=== PATIENT | male | born 1975 | race Two or more races ===

== ENCOUNTER 2024-07-20 18:14 | Emergency (ER) | payer OTHER, SELFPAY ==
[2024-07-20 18:25] VITALS: BP 149/101
[2024-07-20 18:48] LABS: % Basophils 0.2 % (0-2); % Eosinophils 1.5 % (0-6); % Immature Granulocytes 0.2 % (0-0.5); % Lymphocytes 36.5 % (20.5-51.1); % Monocytes 6.9 % (1.7-9.3); % Neutrophils 54.7 % (42.2-75.2); Absolute Eosinophils 0.1 10^3/uL (0-0.7); Absolute Lymphocytes 2.2 10^3/uL (1.2-3.4); Absolute Monocytes 0.4 10^3/uL (0.1-0.6); Absolute Neutrophils 3.4 10^3/uL (1.4-6.5); Hematocrit 42.2 % (39.0-52.0); Hemoglobin 14.1 g/dL (13.0-18.0); Mean Corp Hgb Conc. 33.4 g/dL (33.0-37.0); Mean Corpuscular Hgb 28.8 pg (27.0-31.0); Mean Corpuscular Volume 86.1 fL (80.0-94.0); Mean Platelet Volume 9.1 fL (7.4-10.4); Nucleated Red Blood Cells % 0 % (-); Platelet Count 244 10^3/uL (130-400); White Blood Cell Count 6.1 10^3/uL (4.8-10.8)
[2024-07-20 19:13] LABS: Troponin I < 0.012 ng/ml
[2024-07-20 19:15] LABS: ALT (SGPT) 66 U/L (0-50); AST (SGOT) 32 U/L (17-59); Albumin 5.4 g/dl (3.5-5.0); Alkaline Phosphatase 56 U/L (38-126); Blood Urea Nitrogen 13 mg/dl (9-20); Calcium 9.3 mg/dl (8.4-10.2); Carbon Dioxide 27 mmol/L (22-30); Glucose 103 mg/dl (70-99); Total Bilirubin 0.4 mg/dl (0.2-1.3); Total Protein 8.5 g/dl (6.3-8.2); eGFR > 60.00
[2024-07-20 19:25] LABS: Chloride 101 mmol/L (98-107); Potassium 4.1 mmol/L (3.5-5.1); Sodium 138 mmol/L (135-145)
--- NOTE | 2024-07-20 22:36 | ED.GENMED ---
History of Present Illness
<Hieu Pemberton MD, Resident - Last Filed: 07/21/24 02:15>
General
Chief Complaint: Dizziness
Source: patient
Time Seen by Provider: 07/20/24 22:36
Nursing documentation reviewed up to this point in time: agreed with
Travel History
Have you traveled to any high risk areas for coronavirus over the past 14 days?: No
Have you had any contact with someone who has COVID-19?: No
Do you have any symptoms of coronavirus? Fever > 100 degrees, chills, cough, shortness of breath, sore throat, loss of taste or smell, muscle aches, or headache?: No
History of Present Illness
History of Present Illness:
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 Patient reports that he has been checking his blood pressure at home and
reports BP between 140-150 systolic which has recently come up to about 180 systolic recently. He does not see any regular PCP, and does not take any medications. He denies any chest pain, shortness of breath, vision changes, cough, palpitation,
fever, chills, abdominal pain, urinary symptoms.
Past History
<Hieu Pemberton MD, Resident - Last Filed: 07/21/24 02:15>
Past History
ED Past Medical History: None
Social History
Tobacco: Non-smoker
Alcohol: None
Drug: None
Personal: Single
Living: alone
Employment: Employed
Family History
Family History: Hypertension (Mother)
Review of Systems
<Hieu Pemberton MD, Resident - Last Filed: 07/21/24 02:15>
Review of Systems
All Other Systems: ROS reviewed and negative except as documented in HPI and ROS
Phy Exam
<Hieu Pemberton MD, Resident - Last Filed: 07/21/24 02:15>
Physical Exam
Physical Exam:
GENERAL: Alert and oriented x 3, NAD. Afebrile
HEAD: NC/AT
OROPHARYNX: no exudate or ulcers.
EYE: pupils equal and reactive extraocular muscles
NECK: Supple, no significant adenopathy.
CARDIAC: Regular rate and rhythm without any obvious murmurs.
LUNGS: Normal breath sounds,normal-no rhonchi. Not bronchospastic.
ABDOMEN: Soft, NT, ND, no peritoneal signs.
NEUROLOGICAL: Alert and oriented x 3. No focal neurological deficit.
SKIN: Warm and dry, no rash or lesion, no discoloration, skin intact.
MUSCULOSKELETAL: Full range of motion of extremities.
LYMPHATIC:No lymph nodes on his neck or supraclavicular area.
PSYCH: Normal and appropriate interaction.
Course
<Hieu Pemberton MD, Resident - Last Filed: 07/21/24 02:15>
Orders/Labs/Results
Orders:
Orders
07/20/24 18:31
Electrocardiogram (*1) Urgent
Reason for Study: Vertigo / Dizzy
EKG- Treatment ONCE
07/20/24 18:42
CMP [Comprehensive Metabolic Panel] Urgent
Complete Blood Count/With Diff Urgent
Troponin I Urgent
07/20/24 23:07
Orthostatic VS- Treatment ONCE
07/20/24 23:31
CR Chest - 2 Views Urgent
Comment:
Reason For Exam: Dizziness, LVH on EKG
07/20/24 23:42
Lisinopril [Zestril] 10 mg PO NOW STA
07/21/24 00:01
CT Head W/o Iv Contrast Urgent
Reason For Exam: Dizziness
Abnormal Lab Results
07/20/24
18:42
Glucose 103 H mg/dl
(70-99)
ALT 66 H U/L
(0-50)
Total Protein 8.5 H g/dl
(6.3-8.2)
Albumin 5.4 H g/dl
(3.5-5.0)
07/20/24 18:42
07/20/24 18:42
Vital Signs
Initial and Last Documented VS:
Initial Vital Signs
Temp Pulse Resp BP Pulse Ox
98.4 F 74 16 149/101 100
07/20/24 18:25 07/20/24 18:25 07/20/24 18:25 07/20/24 18:25 07/20/24 18:25
Last Documented Vital Signs
Temp Pulse Resp BP Pulse Ox
97.4 F 54 14 142/82 99
07/20/24 23:09 07/21/24 01:08 07/20/24 23:08 07/21/24 01:08 07/21/24 01:08
<Alesha Weldon, DO - Last Filed: 07/21/24 01:57>
Orders/Labs/Results
Orders:
Orders
07/20/24 18:31
Electrocardiogram (*1) Urgent
Reason for Study: Vertigo / Dizzy
EKG- Treatment ONCE
07/20/24 18:42
CMP [Comprehensive Metabolic Panel] Urgent
Complete Blood Count/With Diff Urgent
Troponin I Urgent
07/20/24 23:07
Orthostatic VS- Treatment ONCE
07/20/24 23:31
CR Chest - 2 Views Urgent
Comment:
Reason For Exam: Dizziness, LVH on EKG
07/20/24 23:42
Lisinopril [Zestril] 10 mg PO NOW STA
07/21/24 00:01
CT Head W/o Iv Contrast Urgent
Reason For Exam: Dizziness
Abnormal Lab Results
07/20/24
18:42
Glucose 103 H mg/dl
(70-99)
ALT 66 H U/L
(0-50)
Total Protein 8.5 H g/dl
(6.3-8.2)
Albumin 5.4 H g/dl
(3.5-5.0)
07/20/24 18:42
07/20/24 18:42
Vital Signs
Initial and Last Documented VS:
Initial Vital Signs
Temp Pulse Resp BP Pulse Ox
98.4 F 74 16 149/101 100
07/20/24 18:25 07/20/24 18:25 07/20/24 18:25 07/20/24 18:25 07/20/24 18:25
Last Documented Vital Signs
Temp Pulse Resp BP Pulse Ox
97.4 F 54 14 142/82 99
07/20/24 23:09 07/21/24 01:08 07/20/24 23:08 07/21/24 01:08 07/21/24 01:08
<Hieu Pemberton MD, Resident - Last Filed: 07/21/24 02:15>
MDM/Problems Addressed
MDM/Problems Addressed:
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 ECG in the ED was significant for LVH. Differential diagnosis include,
Vasovagal syncope, posterior circulation stroke, poorly controlled hypertension, hyperlipidemia, arrhythmia, orthostatic hypotension, stress, anxiety.
Given his symptoms, we will get a noncontrast CT of head, check chest x-ray to evaluate for LVH and monitor for now. He ultimately needs to follow-up with the primary care physician for outpatient blood pressure optimization. Will provide
information for [facility], and family medicine residency clinic.
Chronic conditions affecting care: HTN
<Hieu Pemberton MD, Resident - Last Filed: 07/21/24 02:15>
*EKG
Interpreted by ED Provider?: Yes
EKG Intrepretation Date: 07/20/24
EKG Intrepretation Time: 18:31
Interpretation: normal
Comparison EKG: no comparison EKG present
Heart Rate: 67
Rate: normal
Rhythm: sinus
[place]: normal axis
Interval: normal interval
QRS Pattern: left vent hypertrophy
Ischemia: no ischemia
*Critical Care Note
Total Time (30-74mins, 75-104mins- exclusive of procedures): Not Applicable
<Hieu Pemberton MD, Resident - Last Filed: 07/21/24 02:15>
Update Note
Update Note:
Patient reports feeling better. Blood pressure improved. His chest x-ray and head CT were without any abnormalities. Patient is medically stable for discharge. Have instructed patient to follow-up with a primary care physician for blood pressure
optimization and other chronic problems.
ED Attending Note
<Hieu Pemberton MD, Resident - Last Filed: 07/21/24 02:15>
-
Portions of this chart may have been created with voice recognition software.� Occasional wrong word or��sound alike� substitutions may have occurred due to the inherent limitations of voice recognition software.
<Alesha Weldon, DO - Last Filed: 07/21/24 01:57>
ED Attending Note
Patient seen and examined by attending physician: Yes
I performed a history and physical exam of patient and discussed management with resident, I reviewed resident's note and agree with documented findings and plan of care.: Yes
ED Attending Note:
This is a 48-year-old [place] gentleman who has relocated to the [place] 6 months ago.
He reports no past medical history and takes no medicines on a daily basis but has been monitoring his blood pressure frequently over the past several months and notes that his blood pressure has been elevated anywhere from 130s to 160s and
occasionally elevated at 180. He does admit that these higher blood pressure readings tend to occur when he checks his blood pressure multiple times in 1 sitting.
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 He denies a sense of dizziness nor spinning, no palpitations no chest pain, no coughing or shortness of breath, no headache initially.
He did not pass out and lightheadedness resolved within several minutes but sometime after that he then developed mild generalized headache. He did check his blood pressure and was concerned that it was elevated, 170s systolic.
Currently feeling improved, continues with mild headache but no further lightheadedness, no dizziness, no other associated symptoms.
No history of similar episodes in the past.
48-year-old gentleman appears his stated age, awake and alert, pleasant, appears in no acute distress.
Neck is supple, nontender, no JVD, no bruit.
Heart is regular rate and rhythm.
Neuro: Awake alert and oriented x 3. No focal neurodeficits. Gait is steady.
Concern for hypertensive urgency, intracerebral bleeding, TIA, electrolyte abnormality, anemia, arrhythmia.
Mild hypertension noted initially, has improved to 133/88.
I do suspect an element of hypertension especially as elevated blood pressure has persisted over the past several months.
EKG shows normal sinus rhythm, normal axis, normal intervals, no acute ST-T wave abnormalities, concern for LVH.
Labs are unremarkable, negative troponin. Normal renal function.
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
Will check chest x-ray as well as CT of the head.
Will check orthostatic vital signs.
01:55
Patient remains asymptomatic.
Chest x-ray is unremarkable.
CT of the head is unremarkable.
Blood pressure currently 142/82.
Would recommend initiation of low-dose antihypertensive with plan for follow-up with a PCP and patient will be provided information for our free clinic.
Discharge Plan
Departure
Patient Disposition: Home (Routine Discharge)
Date of Disposition: 07/21/24
Time of Disposition: 02:05
Patient with high blood pressure during this ER visit?: Yes
Condition: Good
Covid-19: Not Applicable
Discharge Problem:
Elevated blood pressure reading, Dizziness, Near syncope
Instructions: Dizziness, Nonvertigo, (DC), BLOOD PRESSURE
Prescriptions:
New
lisinopril 10 mg tablet
10 mg PO DAILY Qty: 30 0RF
Referrals:
[facility] [Outside] - Follow up in 10 days
[facility] [Outside] - Follow up in 10 days
Activity Restrictions/Additional Instructions:
It was a pleasure meeting you and taking part in your care. We hope for your continued healing and wellness. You presented to the emergency department with dizziness and elevated blood pressure. Your EKG, labs, head CT and chest x-ray were all
normal. You have been treated with a dose of 10 mg lisinopril and your blood pressure has improved. You are medically stable for discharge.
Please read discharge instructions in their entirety. However, they are for general education and may not describe your exact diagnosis at discharge. Information on your ER visit and medical conditions were discussed with you along with appropriate
follow up information.
If indicated, please take your medications as prescribed and follow up with your primary care provider and/or other healthcare provider involved in your care for any further adjustments to your medication regimen as necessary.
You may return to the emergency department if you start having weakness, bleeding, fever, inability to walk, nausea, vomiting.
Please schedule a follow up appointment as directed. Call to schedule an appointment.
Please return to the emergency department with ANY change in, persisting, or worsening of symptoms. If any of your symptoms do not improve, or persist, or become more severe within 6-12 hours, please return to the emergency department for further
care. You may also return to the emergency department if you develop a headache, neck pain/stiffness, fever greater than 100.4F, chest pain, shortness of breath, persistent nausea, vomiting, slurred speech, difficulty walking, numbness/tingling,
weakness, signs of infection or any other symptoms that are worrisome to you.
If you have any questions or concerns please do not hesitate to call the Hospital at .
Interventions
Interventions:
*Risk Screen - Suicide Last Done: 07/20/24 18:25
*General Assessment Last Done: 07/20/24 23:00
*Neglect/Abuse Screening Last Done: 07/20/24 18:25
ED- Fall Risk Assessment Last Done: 07/20/24 23:24
*ED COVID-19 Vaccine History Last Done: 07/20/24 23:00
ED- Neurological Assessment Last Done: 07/20/24 23:10
ED- Cardiac Assessment Last Done: 07/20/24 23:10
Discharge Date and Time
Print Language: CROATIAN
[2024-07-20 23:01] VITALS: BMI 29.3
--- NOTE | 2024-07-20 23:01 | EDRN ---
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 Pt has been checking his bp this past week and it has been 161-183/90-112. 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 When he finished, he had to wait until he was able to
move safely. Pt only ate in the morning. Pt only drank a small bottle of water before he felt dizzy. Pt has not had anything to drink or eat since. Pt feels better now, says when he was in the waiting room he did not feel well. No n/v,
fever/chills/cough, cp/sob, abd pain. Pt has a headache. Pt did not take anything for headache.
[2024-07-20 23:08] VITALS: BP 133/88
[2024-07-20 23:15] VITALS: BP 139/88; BP 141/107; BP 144/99; PULSE 53; PULSE 60; PULSE 65
--- NOTE | 2024-07-20 23:18 | EDRN ---
Pt said he did not have dizziness during ortho signs, 'I just don't feel right.'
[2024-07-21] MEDS: ZESTRIL 10 MG PO (00:14)
[2024-07-21 01:08] VITALS: BP 142/82
[2024-07-21 02:00] VITALS: BP 123/91
== END 2024-07-21 02:33 | disposition home or self-care (01) ==
LOC: EMR 18:14
PROVIDERS: Emergency Medicine; EMERGENCY PHYSICIAN Emergency Medicine
DX: R55 Syncope and collapse (principal); R42 Dizziness and giddiness; I10 Essential (primary) hypertension
CPT/HCPCS: 99285; 70450; 71046; 80053; 84484; 85025; 93005

== ENCOUNTER → 2024-07-31 12:53 | Outpatient (REF) | payer OTHER, SELFPAY | LOC: HWRAD 12:53 | DX: S39.92XA Unspecified injury of lower back, initial encounter (principal); R29.898 Other symptoms and signs involving the musculoskeletal system | CPT/HCPCS: 72100 ==

== ENCOUNTER 2024-08-03 11:59 | Emergency (ER) | payer OTHER, SELFPAY ==
[2024-08-03 12:08] VITALS: BP 150/104
[2024-08-03 12:32] LABS: % Basophils 0.4 % (0-2); % Immature Granulocytes 0.2 % (0-0.5); % Lymphocytes 32.9 % (20.5-51.1); % Monocytes 6.5 % (1.7-9.3); Absolute Eosinophils 0.1 10^3/uL (0-0.7); Absolute Lymphocytes 1.7 10^3/uL (1.2-3.4); Absolute Monocytes 0.3 10^3/uL (0.1-0.6); Hematocrit 40.7 % (39.0-52.0); Hemoglobin 13.4 g/dL (13.0-18.0); Mean Corp Hgb Conc. 32.9 g/dL (33.0-37.0); Mean Corpuscular Hgb 28.8 pg (27.0-31.0); Mean Corpuscular Volume 87.5 fL (80.0-94.0); Mean Platelet Volume 9.4 fL (7.4-10.4); Nucleated Red Blood Cells % 0 % (-); Platelet Count 235 10^3/uL (130-400); Red Blood Cell Count 4.65 10^6/uL (4.70-6.10); Red Cell Dist. Width 13.2 % (11.5-14.5); White Blood Cell Count 5.1 10^3/uL (4.8-10.8)
[2024-08-03 12:45] LABS: ALT (SGPT) 61 U/L (0-50); AST (SGOT) 30 U/L (17-59); Albumin 5.1 g/dl (3.5-5.0); Alkaline Phosphatase 63 U/L (38-126); Blood Urea Nitrogen 11 mg/dl (9-20); Calcium 9.4 mg/dl (8.4-10.2); Carbon Dioxide 29 mmol/L (22-30); Chloride 103 mmol/L (98-107); Glucose 99 mg/dl (70-99); Potassium 4.1 mmol/L (3.5-5.1); Sodium 141 mmol/L (135-145); Total Bilirubin 0.5 mg/dl (0.2-1.3); Total Protein 7.6 g/dl (6.3-8.2); eGFR > 60.00
[2024-08-03 12:57] LABS: Troponin I < 0.012 ng/ml
--- NOTE | 2024-08-03 14:56 | ED.GENMED ---
History of Present Illness
General
Chief Complaint: Dizziness
Time Seen by Provider: 08/03/24 14:22
History of Present Illness
History of Present Illness:
48-year-old male presents to the emergency department for evaluation of episodic dizziness. He was seen emergency department earlier this month for this. Reports positional vertigo type symptoms that seem to preethi after several minutes. Initially
this was felt to be due to uncontrolled hypertension however despite taking his antihypertensives his symptoms have not improved. He also reports episodic chest pain, not clearly exertional and nonpositional. He is scheduled for an echocardiogram
next week.
Past History
Past History
ED Past Medical History: None
Social History
Tobacco: Non-smoker
Alcohol: None
Drug: None
Personal: Single
Living: alone
Employment: Employed
Family History
Family History: Hypertension (Mother)
Review of Systems
Review of Systems
Allergies reviewed?: Yes
All Other Systems: ROS reviewed and negative except as documented in HPI and ROS
Phy Exam
Physical Exam
Physical Exam:
GEN: Well appearing, NAD, WDWN
HEENT: Oral mucosa moist, no scleral icterus, no nasal congestion
Cardiac: Regular rate
Lung: No respiratory distress, no tachypnea
MSK: No gross deformity or injuries
Skin: Good color, no pallor or jaundice, no rashes
Neuro: AO x3; CN II-XII grossly intact. BUE strength 5/5 in all jett, sensation intact and symmetric. BLE strength 5/5 in all jett, sensation intact and symmetric
Psych: Calm, cooperative
Scores
Heart Score for Chest Pain Patients
STEMI patient?: No
History: Slightly or Non-Suspicious
ECG: Normal
Age: >45 - <65 years
Risk Factors: 1 or 2 Risk Factors
Troponin: </= Normal Limit
Heart Score for Chest Pain Patients: 2
Heart Score Risk: 2.5% MACE over next 6 weeks
Course
Orders/Labs/Results
Orders:
Orders
08/03/24 12:12
Electrocardiogram (*1) Urgent
Reason for Study: Vertigo / Dizzy
08/03/24 12:13
EKG- Treatment ONCE
08/03/24 12:18
Complete Blood Count/With Diff Urgent
Comprehensive Metabolic Panel Urgent
Troponin I Urgent
Abnormal Lab Results
08/03/24
12:18
RBC 4.65 L 10^6/uL
(4.70-6.10)
MCHC 32.9 L g/dL
(33.0-37.0)
ALT 61 H U/L
(0-50)
Albumin 5.1 H g/dl
(3.5-5.0)
08/03/24 12:18
08/03/24 12:18
Vital Signs
Initial and Last Documented VS:
Initial Vital Signs
Temp Pulse Resp BP Pulse Ox
98.7 F 97 18 150/104 98
08/03/24 12:08 08/03/24 12:08 08/03/24 12:08 08/03/24 12:08 08/03/24 12:08
Last Documented Vital Signs
Temp Pulse Resp BP Pulse Ox
98.7 F 62 18 136/88 98
08/03/24 12:08 08/03/24 15:12 08/03/24 15:12 08/03/24 15:12 08/03/24 15:12
MDM/Problems Addressed
MDM/Problems Addressed:
Patient's vertigo is most likely on the basis of positional vertigo. He has no symptoms at rest and his symptoms resolved within several minutes of being upright. He is not orthostatic. Regards to his chest pain he does not pain a clear picture
of angina, will refer to cardiology through the chest pain hotline but EKG and troponin here are reassuring
*Critical Care Note
Total Time (30-74mins, 75-104mins- exclusive of procedures): Not Applicable
ED Attending Note
-
Portions of this chart may have been created with voice recognition software.� Occasional wrong word or��sound alike� substitutions may have occurred due to the inherent limitations of voice recognition software.
Discharge Plan
Departure
Patient Disposition: Home (Routine Discharge)
Date of Disposition: 08/03/24
Time of Disposition: 14:57
Patient with high blood pressure during this ER visit?: No
Discharge Problem:
Vertigo, Atypical chest pain
Instructions: Vertigo (a Type of Dizziness) (DC), Chest Pain CBC Follow Up
Prescriptions:
New
meclizine 25 mg tablet
25 mg PO TID PRN (Reason: dizziness) Qty: 30 0RF
No Action
lisinopril 10 mg tablet
10 mg PO DAILY Qty: 30 0RF
Referrals:
Josué Carvajal MD, Resident [Family Provider] -
Radha St MD [Active] -
Interventions
Interventions:
*Risk Screen - Suicide Last Done: 08/03/24 12:08
*General Assessment Last Done: 08/03/24 12:08
*Neglect/Abuse Screening Last Done: 08/03/24 12:08
*Nursing Disposition Last Done: 08/03/24 15:15
Discharge Date and Time
Discharge Date/Time: 08/03/24 15:26
Print Language: ESTONIAN
[2024-08-03 15:12] VITALS: BP 136/88
== END 2024-08-03 15:26 | disposition home or self-care (01) ==
LOC: EMR 11:59
PROVIDERS: Emergency Medicine; EMERGENCY PHYSICIAN Student in an Organized Health Care Education/Training Program
DX: R07.89 Other chest pain (principal); R42 Dizziness and giddiness; I10 Essential (primary) hypertension; Z79.899 Other long term (current) drug therapy
CPT/HCPCS: 99283; 80053; 84484; 85025; 93005

== ENCOUNTER → 2024-08-09 07:13 | Outpatient (REF) | payer OTHER, SELFPAY | LOC: HWRCS 07:13 | DX: F43.10 Post-traumatic stress disorder, unspecified (principal) | CPT/HCPCS: 93306 ==

== ENCOUNTER 2024-08-16 12:01 | Outpatient (RCR) | payer OTHER, SELFPAY | END 2024-08-16 23:59 | disposition home or self-care (01) | LOC: RPT 12:01 | PROVIDERS: ATTENDING PHYSICIAN Otolaryngology Otolaryngology/Facial Plastic Surgery; FAMILY PHYSICIAN Family Medicine | DX: R42 Dizziness and giddiness (principal); H81.11 Benign paroxysmal vertigo, right ear; Z73.6 Limitation of activities due to disability; R51.9 Headache, unspecified | CPT/HCPCS: 97112; 97163 ==

== ENCOUNTER → 2024-08-18 12:46 | Outpatient (REF) | payer OTHER, SELFPAY | LOC: MRI 3T 12:46 | PROVIDERS: ATTENDING PHYSICIAN Pain Medicine Interventional Pain Medicine | DX: M54.16 Radiculopathy, lumbar region (principal) | CPT/HCPCS: 72148 ==

== ENCOUNTER → 2024-11-13 14:30 | Outpatient (REF) | payer OTHER, SELFPAY | LOC: RCS 14:30 | PROVIDERS: ATTENDING PHYSICIAN Student in an Organized Health Care Education/Training Program; FAMILY PHYSICIAN Family Medicine | DX: R07.89 Other chest pain (principal) | CPT/HCPCS: 93017; 93350 ==

== ENCOUNTER → 2024-12-11 15:21 | Outpatient (REF) | payer OTHER, SELFPAY | LOC: HWRAD 15:21 | PROVIDERS: ATTENDING PHYSICIAN Physician Assistant Medical; FAMILY PHYSICIAN Family Medicine | DX: R10.11 Right upper quadrant pain (principal) | CPT/HCPCS: 76700 ==

== ENCOUNTER → 2025-01-28 18:32 | Outpatient (REF) | payer OTHER, SELFPAY | LOC: MRI 18:32 | PROVIDERS: ATTENDING PHYSICIAN Psychiatry & Neurology Neurology; FAMILY PHYSICIAN Family Medicine | DX: R42 Dizziness and giddiness (principal) | CPT/HCPCS: 70551 ==